=== PATIENT | female | born 1980 | race Caucasian/White ===

== ENCOUNTER 2020-01-05 15:29 | Emergency (ER) | payer BC, SELFPAY ==
--- NOTE | 2020-01-05 15:36 | ED.EAR ---
HPI - Ear Problem General Chief complaint: Ear Stated complaint: left ear Time Seen by Provider: 01/05/20 15:36 Source: patient and RN notes reviewed History of Present Illness HPI Narrative: Patient is a 39-year-old female who presents the urgent care with complaints of a clogged left ear. Patient states she has had decreased hearing due to the clogged. Patient denies of any pain to the right ear. States that she is put Debrox drops over the last week without much improvement. Patient does use Q-tips. States is been going on approximately 1 month. Denies of any other upper respiratory symptoms or fever. No other acute complaints. No acute distress noted. Patient read the plan of care. Related Data Home Medications Medication Instructions Recorded Confirmed norgestimate-ethinyl estradiol 1 tablet PO DAILY 01/05/20 01/05/20 [Sprintec (28)] Allergies Allergy/AdvReac Type Severity Reaction Status Date / Time No Known Allergies Allergy Verified 01/05/20 15:42 Review of Systems Review of Systems: Narrative: CONSTITUTIONAL: Denies fever, chills, or sweats. EYES: Denies visual changes, redness, or discharge. ENT: Reports of a clogged left ear with decreased hearing CARDIOVASCULAR: Denies chest pain, palpitations, or edema. RESPIRATORY: Denies cough or dyspnea. GASTROINTESTINAL: Denies abdominal pain, nausea, vomiting, or diarrhea. GENITOURINARY: Denies dysuria or hematuria. SKIN: Denies rash or itching. MUSCULOSKELETAL: Denies back pain, joint pain, or myalgia. NEUROLOGIC: Denies headache, numbness, or weakness. All other systems reviewed are negative, except as documented in HPI. PMFSH Comments At the time of my signature, I reviewed and agree with the nursing past medical, surgical, social, and family history. There is no relevant family history pertinent to the patient complaint. Exam Narrative: Exam Narrative: GENERAL: This is a well-nourished, well-developed patient, in no apparent distress. HEAD: normocephalic, atraumatic. EYES: PERRL. Sclera clear/white. Vision is grossly intact. EARS: External ears normal, auditory canals clear and without drainage, unable to visualize left TM due to cerumen impaction, right TM normal without perforation. Hearing grossly intact. NOSE: External nose normal with no obvious nasal discharge, nares without redness, no rhinorrhea. THROAT: Mucous membranes moist NECK: Neck supple SKIN: warm, intact with no suspicious lesions or rash, good texture and turgor. NEURO: awake, alert, and oriented to person, place and time. There were no obvious focal neurologic abnormalities. EXTREMITIES: No clubbing, cyanosis, or edema. Course Vital Signs Vital signs: Vital Signs Temperature 97.9 F 01/05/20 15:37 Pulse Rate 64 01/05/20 15:37 Respiratory Rate 14 01/05/20 15:37 Blood Pressure 113/75 01/05/20 15:37 Pulse Oximetry 100 01/05/20 15:37 Temperature 97.9 F 01/05/20 15:37 Pulse Rate 64 01/05/20 15:37 Respiratory Rate 14 01/05/20 15:37 Blood Pressure 113/75 01/05/20 15:37 Pulse Oximetry 100 01/05/20 15:37 Reviewed Procedures Ear Wax Removal Left Ear: Cerumenolytic Used: other (50-50 peroxide and warm water) Results: Re-examined: cerumen removed completely TM Examination: TM(s) intact, normal appearance Patient Tolerated Procedure: well Complications: no problems Additional Comments: Left ear irrigation/cerumen impaction removal with 50-50 peroxide and warm water using elephant ear. No complications. Patient tolerated procedure well. Cerumen removed without any other foreign body. TM within normal limits without otitis. Hearing intact and fully improved. Medical Decision Making MDM Narrative Medical decision making narrative: Advised the patient to avoid using Q-tips, peroxide, water in the ears. Ear canals are clean and Debrox is not necessary. May use a warm compress over the left ear for comfort for th
[2020-01-05 15:37] VITALS: BP 113/75; PULSE 64; RESP 14; TEMP 36.6; O2SAT 100
== END 2020-01-05 15:57 | disposition home or self-care (01) ==
PROVIDERS: Emergency Provider Nurse Practitioner Family
DX: H61.22 Impacted cerumen, left ear (principal)
CPT/HCPCS: 69209; 99212; G0463